=== PATIENT | male | born 1975 | race Caucasian/White ===

== ENCOUNTER 2017-10-01 21:16 | Emergency (ER) | payer BC ==
[2017-10-01 21:34] VITALS: BP 111/68
--- NOTE | 2017-10-01 22:09 | UC ---
Respiratory Complaint HPI - HPI Summary HPI Summary: 42-year-old male presents with sudden onset of general malaise and body aches around 3:30 this afternoon. States by 8:00 this evening spiked a fever of 101 Fahrenheit and began having right sided chest pain and shortness of breath. Reports that earlier today he was working on remodeling an apartment and was pulling up some dirty carpet without respiratory protection. Denies personal or family history of cardiac disease, respiratory disease, clotting disorders, calf pain or tenderness, recent confinement, travel out of the country, or surgery. - History of Current Complaint Chief Complaint: UCRespiratory Stated Complaint: FEVER,CHILLS,TIGHT CHEST,RT SIDED PAIN Time Seen by Provider: 10/01/17 21:55 Hx Obtained From: Patient Onset/Duration: Sudden Onset Severity Initially: Moderate Severity Currently: Moderate Pain Intensity: 9 Aggravating Factors: Deep Breaths Alleviating Factors: Upright Position Associated Signs And Symptoms: Positive: Dyspnea, Fever, Chills, Pleuritic Chest Pain. Negative: Wheezing, Hemoptysis, Calf Pain, Calf Swelling - Risk Factors Pulmonary Embolism Risk Factors: Negative Cardiac Risk Factors: Negative - Allergies/Home Medications Allergies/Adverse Reactions: Allergies Allergy/AdvReac Type Severity Reaction Status Date / Time acetaminophen Allergy Intermediate eye Verified 10/01/17 21:38 swelling ibuprofen Allergy Intermediate eye Verified 10/01/17 21:38 swelling PMH/Surg Hx/FS Hx/Imm Hx - Additional Past Medical History Additional PMH: non-contrib Previously Healthy: Yes - Surgical History Surgical History: None - Family History Known Family History: Positive: Other - non-contributory - Social History Occupation: Employed Full-time Lives: With Family Alcohol Use: Occasionally Substance Use Type: None Smoking Status (MU): Never Smoked Tobacco Review of Systems Constitutional: Fever, Chills, Other - General malaise, body aches Skin: Negative ENT: Sore Throat Respiratory: Shortness Of Breath, Other - Right sided plueritic pain Cardiovascular: Negative Gastrointestinal: Other - Heartburn Is Patient Immunocompromised?: No All Other Systems Reviewed And Are Negative: Yes Physical Exam Triage Information Reviewed: Yes Appearance: Well-Nourished, Pain Distress, Other: - Non-toxic Vital Signs: Initial Vital Signs Temp 100.1 F 10/01/17 21:27 Pulse 90 10/01/17 21:27 Resp 18 10/01/17 21:27 BP 111/68 10/01/17 21:27 Pulse Ox 100 10/01/17 21:27 Vital Signs Reviewed: Yes ENT: Positive: Pharynx normal, Nasal congestion - Mild, Uvula midline. Negative : Pharyngeal erythema, Tonsillar swelling, Tonsillar exudate Neck: Positive: Supple, Nontender, No Lymphadenopathy Respiratory: Positive: Lungs clear, Normal breath sounds, No respiratory distress, No accessory muscle use. Negative: Decreased breath sounds, Crackles , Rhonchi, Wheezing, Plerual rub Cardiovascular: Positive: RRR, No Murmur, Pulses Normal, Brisk Capillary Refill Skin Exam: Normal - No subcutaneous emphysema UC Diagnostic Evaluation - Laboratory O2 Sat by Pulse Oximetry: 100 - Radiology Xray Interpretation: Positive (See Comments) - No infiltrates or masses. Question of air around the mediastinum. Radiology Interpretation Completed By: ED Physician - Preliminary reading by myself. Consulted with Dr. Vora at [facility]. Respiratory Course/Dx - Course Course Of Treatment: 42 year old male with sudden onset of genreal malaise, body aches, fever, right sided chest pain, and shortness of breath. His exam was fairly benign except for a slightly elevated temperature and he appeared in pain and unable to get into a comfortable position. CXR showed no evidence of pneumonia however was suspicious for air around the mediastinum. His history was unremarkable for cardiac risk factors, PE risk factors, or pneumomedistinum risk factors. [place] was made to have patient evaluated in the ED. He elects to go to [facility] via private vehicle. Report was called to Dr. Lan. - Differential Dx/Diagnosis Differential Diagnosis/HQI/PQRI: Lower Resp Infection, Pneumothorax, Pulmonary Embolism Provider Diagnoses: Pneumomediastinum Discharge - Sign-Out/Discharge Documenting (check all that apply): Patient Departure - Discharge Plan Condition: Stable Disposition: HOME-RECOMMEND TO ED Referrals: Aubrie Quintero MD [Primary Care Provider] - Additional Instructions: With the chest pain and the concern about some air around the mediastinum on your chest x-ray I am recommending that you go immediately to the emergency room here in [place] for further evaluation. - Billing Disposition and Condition Condition: STABLE Disposition: Home-Recommend to ED
--- NOTE | 2017-10-02 07:39 | RAD ---
Indication: Right-sided chest pain and fever. 2 views of the chest including dual energy PA views demonstrate no mediastinal shift. Heart is of normal size and configuration. Lung trujillo are clear. IMPRESSION: No active cardiopulmonary disease is noted. R0
== END 2017-10-01 22:53 | disposition home health service (06) ==
LOC: UCCORT 21:16
DX: J98.2 Interstitial emphysema (principal); Z88.6 Allergy status to analgesic agent
CPT/HCPCS: 71046; 99202; G0463

== ENCOUNTER 2019-05-04 15:54 | Emergency (ER) | payer BC ==
[2019-05-04 18:03] VITALS: BP 122/77
--- NOTE | 2019-05-04 18:45 | UC ---
Throat Pain/Nasal Sam HPI - HPI Summary HPI Summary: Pt presents with c/o sudden onset of ST X 3-4 days. Pt;'s three children have been treated for strep throat in the last 4 weeks and one child has been diagnosed twice in the last 4 weeks. - History of Current Complaint Chief Complaint: UCGeneralIllness Stated Complaint: SORE THROAT Time Seen by Provider: 05/04/19 18:14 Hx Obtained From: Patient Onset/Duration: Sudden Onset Severity: Mild Pain Intensity: 1 Cough: None Associated Signs & Symptoms: Positive: Dysphagia - Epiglottits Risk Factors Epiglottis Risk Factors: Negative - Allergies/Home Medications Allergies/Adverse Reactions: Allergies Allergy/AdvReac Type Severity Reaction Status Date / Time acetaminophen Allergy Intermediate eye Verified 05/04/19 18:03 swelling ibuprofen Allergy Intermediate eye Verified 05/04/19 18:03 swelling Home Medications: Home Medications Antibiotic Medication 05/04/19 [History] PMH/Surg Hx/FS Hx/Imm Hx Previously Healthy: Yes - Surgical History Surgical History: None - Family History Known Family History: Positive: Cardiac Disease, Other - non-contributory - Social History Occupation: Employed Full-time Lives: With Family Alcohol Use: Occasionally Substance Use Type: None Smoking Status (MU): Never Smoked Tobacco Have You Smoked in the Last Year: No - Immunization History Vaccination Up to Date: Yes Review of Systems All Other Systems Reviewed And Are Negative: Yes Constitutional: Positive: Negative Skin: Positive: Negative Eyes: Positive: Negative ENT: Positive: Sore Throat Respiratory: Positive: Negative Cardiovascular: Positive: Negative Gastrointestinal: Positive: Negative Genitourinary: Positive: Negative Motor: Positive: Negative Neurovascular: Positive: Negative Musculoskeletal: Positive: Negative Neurological/Mental Status: Positive: Negative Psychological: Positive: Negative Is Patient Immunocompromised?: No Physical Exam Triage Information Reviewed: Yes Appearance: Well-Appearing Vital Signs: Initial Vital Signs Temp 98.5 F 05/04/19 17:59 Pulse 59 05/04/19 17:59 Resp 14 05/04/19 17:59 BP 122/77 05/04/19 17:59 Pulse Ox 99 05/04/19 17:59 Vital Signs Reviewed: Yes Eye Exam: Normal ENT: Positive: Pharyngeal erythema Dental Exam: Normal Neck exam: Normal Respiratory: Positive: No respiratory distress Musculoskeletal Exam: Normal Neurological Exam: Normal Psychological Exam: Normal Skin Exam: Normal Throat Pain/Nasal Course/Dx - Differential Dx/Diagnosis Differential Diagnosis/HQI/PQRI: Laryngitis, Pharyngitis, Tonsillitis Provider Diagnosis: Sore throat (viral) Discharge ED - Sign-Out/Discharge Documenting (check all that apply): Patient Departure All imaging exams completed and their final reports reviewed: No Studies - Discharge Plan Condition: Stable Disposition: HOME Patient Education Materials: Pharyngitis (ED) Referrals: Aubrie Quintero MD [Primary Care Provider] - If Needed - Billing Disposition and Condition Condition: STABLE Disposition: Home
== END 2019-05-04 18:51 | disposition home or self-care (01) ==
LOC: UCCORT 15:54
DX: J02.9 Acute pharyngitis, unspecified (principal); Z88.6 Allergy status to analgesic agent
CPT/HCPCS: 87651; 99211; G0463